=== PATIENT | male | born 1980 | race African-American/Black ===

== ENCOUNTER 2018-06-21 08:24 | Emergency (ER) | payer OTHER ==
[~2018-06-21] VITALS: Ht 180.3 cm; Wt 127.0 kg
[2018-06-21 08:30] VITALS: BP 143/89
--- NOTE | 2018-06-21 08:30 | NUR ---
ED Nurse Note: pt brought by RA from work due to heaviness on chest that started about 30 mins ago. per pt, he was lifted boxes which was not heavy. pt denies pain, "just heavy" skin warm to touch. no open wound noted. AAO x4. respirations even and non-labored noted. breath sounds clear. 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 tacycardia noted and Dr. Taylor notified. EKG done at the bed side. will wait for the further order.
--- NOTE | 2018-06-21 08:30 | NUR ---
Note undone in EDM - 06/21/18 at 0917 by ROBEL ED Nurse Note: pt brought by RA from work due to heaviness on chest that started about 30 mins ago. per pt, he was lifted boxes which was not heavy. pt denies pain, "just heavy" skin warm to touch. no open wound noted. AAO x4. respirations even and non-labored noted. breath sounds clear. 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 tacycardia noted and Dr. Taylor notified. EKD done at the bed side. will wait for the further order.
[2018-06-21] MEDS ORDERED: METRONIDAZOLE500 MG ORAL (08:31)
[2018-06-21] MEDS ORDERED: LORATADINE10 M1 PO (08:31)
[2018-06-21] MEDS ORDERED: CLARITHROMYCIN500 MG PO (08:31)
[2018-06-21] MEDS ORDERED: VITAMIN D400 INTLU ORAL (08:31)
[2018-06-21] MEDS ORDERED: OMEPRAZOLE20 M2 ORAL (08:31)
--- NOTE | 2018-06-21 08:34 | NUR ---
ED Nurse Note: 37 year old male was brought by EMT from work. pt. complanes of palpitation and tightness of the chest after lifting 2 boxes. skin is dry and intact.
--- NOTE | 2018-06-21 08:42 | Emergency Room Report ---
History of Present Illness General Chief Complaint: Palpitations Source: Patient Present Illness HPI Patient presents emergency department today complaining of palpitations. Patient states that he has no prior medical problems except for borderline elevated glucose and cholesterol. 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 He states that he was carrying 2 large boxes when he begun to develop acute onset of palpitations so sure chest discomfort and shortness of breath. The discomfort in the chest describes retrosternal going on for almost 30 minutes an hour. Because of the persistence and severity of it he called 911 and came for further evaluation. He complains of social shortness of breath. Denies any fever nausea vomiting or chills. Denies any leg pain leg swelling. No other complete were noted. Symptoms noted to be moderate to severe.No other modifying factors. No other associated signs and symptoms. No other complaints were noted. Allergies: Coded Allergies: PENICILLINS (Verified Allergy, Unknown, 06/21/18) Patient History Past Medical History: HTN Past Surgical History: none Pertinent Family History: none Social History: Denies: smoking, alcohol use, drug use Reviewed Nursing Documentation: PMH: Agreed; PSxH: Agreed Nursing Documentation-PMH Past Medical History: No History, Except For Hx Hypertension: Yes Review of Systems All Other Systems: negative except mentioned in HPI Physical Exam Vital Signs Date Time Temp Pulse Resp B/P (MAP) Pulse Ox O2 Delivery O2 Flow Rate FiO2 06/21/18 08:22 99.9 115 18 152/92 99 Room Air Sp02 EP Interpretation: reviewed, normal General Appearance: normal inspection, well appearing, no apparent distress, alert Head: atraumatic Eyes: bilateral eye normal inspection ENT: normal ENT inspection, hearing grossly normal, normal voice Neck: normal inspection, full range of motion, supple, no bony tend Respiratory: normal inspection, lungs clear, normal breath sounds, no respiratory distress, no retraction, no wheezing Cardiovascular #1: regular rate, rhythm, no edema Gastrointestinal: normal inspection, normal bowel sounds, non tender, soft, no guarding, no hernia Genitourinary: no CVA tenderness Musculoskeletal: normal inspection, back normal, normal range of motion Neurologic: normal inspection, alert, responsive, speech normal Psychiatric: anxious Skin: normal inspection, normal color, no rash Medical Decision Making Diagnostic Impression: Primary Impression: Chest pain Additional Impressions: Palpitations Anxiety attack ER Course Patient presented to the emergency department today complaining of chest pain. Differential diagnoses include acute coronary syndrome, pulmonary embolism, pneumothorax, chest wall pain, pleurisy, pericarditis, acute anxiety reaction just to name a few. Given the severity of the patient's presentation I felt this is a highly complex patient. This patient required extensive workup. CBC , chemistry, EKG, chest x-ray, cardiac enzymes, liver profile were all obtained. 12-lead EKG performed for nontraumatic chest pain. RS documentation: EKG was performed. Please refer to below for interpretation.Patient had CBC and chemistry obtained. Both of which were normal. Patient's cardiac enzymes also normal. Patient had normal chest x-ray. Patient's EKG and rhythm strip are also normal.Given the patient feels much better, and he had a negative workup, I feel the patient can be discharged home.Patient is advised to follow up with primary doctor in 2-3 days and return the emergency room for any worsening symptoms and as needed. Of no I did offer to admit the patient for observation but he declined. States that he feels like is most likely anxiety. Given patient's presentation this is consistent with the symptoms. I did recommend close operative follow-up outpatient stress test return to ER if worsening symptoms with acute onset of chest pain. And as needed. Labs Test 06/21/18 08:45 White Blood Count 9.8 K/UL (4.8-10.8) Red Blood Count 5.59 M/UL (4.70-6.10) Hemoglobin 17.0 G/DL (14.2-18.0) Hematocrit 49.1 % (42.0-52.0) Mean Corpuscular Volume 88 FL (80-99) Mean Corpuscular Hemoglobin 30.4 PG (27.0-31.0) Mean Corpuscular Hemoglobin Concent 34.6 G/DL (32.0-36.0) Red Cell Distribution Width 12.0 % (11.6-14.8) Platelet Count 218 K/UL (150-450) Mean Platelet Volume 6.3 FL (6.5-10.1) Neutrophils (%) (Auto) 71.2 % (45.0-75.0) Lymphocytes (%) (Auto) 21.3 % (20.0-45.0) Monocytes (%) (Auto) 6.0 % (1.0-10.0) Eosinophils (%) (Auto) 0.7 % (0.0-3.0) Basophils (%) (Auto) 0.8 % (0.0-2.0) D-Dimer < 0.19 mg/L FEU Sodium Level 139 MMOL/L (136-145) Potassium Level 3.7 MMOL/L (3.5-5.1) Chloride Level 103 MMOL/L (98-107) Carbon Dioxide Level 26 MMOL/L (21-32) Anion Gap 10 mmol/L (5-15) Blood Urea Nitrogen 12 mg/dL (7-18) Creatinine 1.0 MG/DL (0.55-1.30) Estimat Glomerular Filtration Rate > 60 mL/min (>60) Glucose Level 168 MG/DL (74-106) Calcium Level 8.8 MG/DL (8.5-10.1) Total Bilirubin 0.6 MG/DL (0.2-1.0) Aspartate Amino Transf (AST/SGOT) 52 U/L (15-37) Alanine Aminotransferase (ALT/SGPT) 95 U/L (12-78) Alkaline Phosphatase 78 U/L (46-116) Total Creatine Kinase 184 U/L (26-308) Creatine Kinase MB 1.8 NG/ML (0.0-3.6) Creatine Kinase MB Relative Index 0.9 Troponin I 0.000 ng/mL (0.000-0.056) Pro-B-Type Natriuretic Peptide 20 pg/mL (0-125) Total Protein 7.9 G/DL (6.4-8.2) Albumin 4.0 G/DL (3.4-5.0) Globulin 3.9 g/dL Albumin/Globulin Ratio 1.0 (1.0-2.7) Lipase 124 U/L (73-393) EKG Diagnostic Results Rate: normal Rhythm: NSR ST Segments: no acute changes Rhythm Strip Diag. Results EP Interpretation: yes Rate: 100 Rhythm: NSR, no PVC's, no ectopy Chest X-Ray Diagnostic Results Chest X-Ray Diagnostic Results : Chest X-Ray Ordered: Yes # of Views/Limited/Complete: 1 View Indication: Chest Pain EP Interpretation: No Impression: No acute disease Last Vital Signs Date Time Temp Pulse Resp B/P (MAP) Pulse Ox O2 Delivery O2 Flow Rate FiO2 06/21/18 08:22 99.9 115 18 152/92 99 Room Air Status: improved Disposition: HOME, SELF-CARE Condition: Stable Arturo Taylor MD Jun 21, 2018 08:42
[2018-06-21] MEDS ORDERED: Mylanta II UD 30ml ORAL ONE (08:45)
[2018-06-21] MEDS ORDERED: Aspirin Baby 81mg ORAL ONE (08:45)
[2018-06-21] MEDS ORDERED: LORazepam Inj 2mg/ml 1ml IV ONE (08:45)
[2018-06-21] MEDS ORDERED: Lidocaine 2% Visc 15ml soln ORAL ONE (08:45)
[2018-06-21] MEDS ORDERED: Dicyclomine HCl 10mg/5ml oral soln ORAL ONE (08:45)
[2018-06-21 09:12] LABS: BASOPHILS % (AUTO) 0.8 % (0.0-2.0); EOSINOPHILS % (AUTO) 0.7 % (0.0-3.0); HEMATOCRIT 49.1 % (42.0-52.0); LYMPHOCYTES % (AUTO) 21.3 % (20.0-45.0); MEAN CORPUSCULAR VOLUME 88 FL (80-99); NEUTROPHILS % (AUTO) 71.2 % (45.0-75.0); PLATELET COUNT 218 K/UL (150-450); RED BLOOD COUNT 5.59 M/UL (4.70-6.10); WHITE BLOOD COUNT 9.8 K/UL (4.8-10.8)
[2018-06-21 09:25] LABS: ANION GAP 10 mmol/L (5-15); BLOOD UREA NITROGEN 12 mg/dL (7-18); CALCIUM 8.8 MG/DL (8.5-10.1); CARBON DIOXIDE 26 MMOL/L (21-32); CHLORIDE 103 MMOL/L (98-107); POTASSIUM 3.7 MMOL/L (3.5-5.1); SODIUM 139 MMOL/L (136-145)
[2018-06-21 09:30] VITALS: BP 142/81
[2018-06-21 09:39] LABS: ALANINE AMINOTRANSFERASE 95 U/L (12-78); ALKALINE PHOSPHATASE 78 U/L (46-116); ASPARTATE AMINO TRANSFERASE 52 U/L (15-37); BILIRUBIN,TOTAL 0.6 MG/DL (0.2-1.0); CKMB 1.8 NG/ML (0.0-3.6); CREATINE KINASE 184 U/L (26-308)
--- NOTE | 2018-06-21 09:51 | Diagnostic Imaging Report ---
Indication: Cough Comparison: None A single view chest radiograph was obtained. Findings: Cardiomediastinal appearance is within normal limits for age. The lungs are clear. Pulmonary vascularity is appropriate. The diaphragmatic contour is smooth and costophrenic angles are sharp. No pleural effusions are identified. The bones are unremarkable. Impression: No acute findings
[2018-06-21 10:39] VITALS: BP 148/81
--- NOTE | 2018-06-21 10:44 | NUR ---
ED Nurse Note: pt. was able to ambulate by him self with steady gait, AAO x 4, all belongings was given to the patient. Pt. was educated, and verbalized understanding to folow up with Primary care physician.
== END 2018-06-21 10:50 | disposition home or self-care (01) ==
LOC: EDBD 08:24 → EMR 08:50
DX: R00.2 Palpitations (principal); R07.9 Chest pain, unspecified; F41.9 Anxiety disorder, unspecified; I10 Essential (primary) hypertension
CPT/HCPCS: 36415; 71045; 80053; 82550; 82553; 83690; 83880; 84484; 85025; 85379; 96374; 99284